=== PATIENT | male | born 1960 | race Caucasian/White ===

== ENCOUNTER → 2022-09-21 | Day surgery (SDC) | payer OTHER | END | disposition home or self-care (01) | LOC: ADM 09-19 13:00 → AMB-ENDOS 09:40 | PROVIDERS: ATTEND Colon & Rectal Surgery | DX: D12.5 Benign neoplasm of sigmoid colon (principal); C20 Malignant neoplasm of rectum; K57.30 Diverticulosis of large intestine without perforation or abscess without bleeding; K62.6 Ulcer of anus and rectum; Z20.822 Contact with and (suspected) exposure to COVID-19 ==

== ENCOUNTER 2023-03-15 07:58 | Day surgery (SDC) | payer OTHER | END 2023-03-15 14:35 | disposition home or self-care (01) | LOC: AMB-ENDOS 07:58 | PROVIDERS: ATTEND Colon & Rectal Surgery | DX: C20 Malignant neoplasm of rectum (principal); Z20.822 Contact with and (suspected) exposure to COVID-19 ==

== ENCOUNTER 2023-06-21 10:50 | Day surgery (SDC) | payer OTHER ==
[2023-06-21] MEDS ORDERED: ONDANSETRON HCL 2 MG/ML VIAL IV ONE (15:15)
[2023-06-21] MEDS ORDERED: MIDAZOLAM HCL 2 MG/2 ML VIAL IV ONE (15:15)
[2023-06-21] MEDS ORDERED: DIPHENHYDRAMINE HCL 50 MG/ML VIAL 1ML IV ONE (15:15)
[2023-06-21] MEDS ORDERED: fentaNYL CITRATE 50 MCG/ML AMPUL IV PUSH ONE (15:15)
== END 2023-06-21 16:15 | disposition home or self-care (01) ==
LOC: AMB-ENDOS 10:50
PROVIDERS: ATTEND Colon & Rectal Surgery
DX: C20 Malignant neoplasm of rectum (principal); K64.8 Other hemorrhoids; Z20.822 Contact with and (suspected) exposure to COVID-19

== ENCOUNTER 2024-01-31 06:27 | Day surgery (SDC) | payer OTHER ==
[2024-01-31] MEDS ORDERED: fentaNYL CITRATE 50 MCG/ML AMPUL IV PUSH ONE (09:45)
[2024-01-31] MEDS ORDERED: DIPHENHYDRAMINE HCL 50 MG/ML VIAL 1ML IV ONE (09:45)
[2024-01-31] MEDS ORDERED: MIDAZOLAM HCL 2 MG/2 ML VIAL IV ONE (09:45)
[2024-01-31] MEDS ORDERED: ONDANSETRON HCL 2 MG/ML VIAL IV ONE (09:45)
== END 2024-01-31 11:15 | disposition home or self-care (01) ==
LOC: AMB-ENDOS 06:27
PROVIDERS: ATTEND Colon & Rectal Surgery
DX: C20 Malignant neoplasm of rectum (principal); K52.89 Other specified noninfective gastroenteritis and colitis; D12.0 Benign neoplasm of cecum; K63.5 Polyp of colon; K57.30 Diverticulosis of large intestine without perforation or abscess without bleeding

== ENCOUNTER 2024-08-07 06:37 | Day surgery (SDC) | payer OTHER ==
[2024-08-07] MEDS ORDERED: ONDANSETRON HCL 2 MG/ML VIAL IV ONE (10:30)
[2024-08-07] MEDS ORDERED: fentaNYL CITRATE 50 MCG/ML AMPUL IV PUSH ONE (10:30)
[2024-08-07] MEDS ORDERED: MIDAZOLAM HCL 2 MG/2 ML VIAL IV ONE (10:30)
[2024-08-07] MEDS ORDERED: DIPHENHYDRAMINE HCL 50 MG/ML VIAL 1ML IV ONE (10:30)
== END 2024-08-07 11:40 | disposition home or self-care (01) ==
LOC: AMB-ENDOS 06:37
PROVIDERS: ATTEND Colon & Rectal Surgery
DX: K63.5 Polyp of colon (principal); C20 Malignant neoplasm of rectum; K57.32 Diverticulitis of large intestine without perforation or abscess without bleeding; K57.30 Diverticulosis of large intestine without perforation or abscess without bleeding; K64.8 Other hemorrhoids